=== PATIENT | female | born 1985 | race Caucasian/White ===

== ENCOUNTER 2017-08-14 01:11 | Inpatient (IN) | payer OTHER ==
[2017-08-14] VITALS (30 sets, daily range): BP systolic 95–135; BP diastolic 50–84
[~2017-08-14] VITALS: Ht 172.7 cm; Wt 85.2 kg
[2017-08-14] MEDS ORDERED: LR 1,000 ML IV SCH (02:39)
[2017-08-14] MEDS ORDERED: LACTATED RINGER'S 1000 ML IV ONE (02:45)
[2017-08-14 03:12] LABS: MEAN CORPUSCULAR HEMOGLOBIN 27.6 pg (27.0-33.0); MEAN CORPUSCULAR HGB CONC 33.6 g/dl (32.0-36.5); MEAN CORPUSCULAR VOLUME 82.2 fl (80.0-96.0); PLATELET COUNT, AUTOMATED 241 10^3/uL (150-450); RED CELL DISTRIBUTION WIDTH 13.2 % (11.5-14.5); WHITE BLOOD COUNT 13.3 10^3/uL (4.0-10.0)
[2017-08-14] MEDS ORDERED: FENTANYL 2MCG/ML ROPIVACAINE 0.2% IN 0.9% NACL 200ML IVBAG As Ordered ONE (03:41)
[2017-08-14] MEDS ORDERED: LACTATED RINGER'S 1000 ML IV PRN (04:15)
[2017-08-14] MEDS ORDERED: ONDANSETRON 4MG/2ML VIAL (J2405) IV PRN (04:15)
[2017-08-14] MEDS ORDERED: REFRIGERATOR IV KEYS XX PRN (04:15)
[2017-08-14] MEDS ORDERED: EPIDURAL/PCA KEYS XX PRN (04:15)
[2017-08-14] MEDS ORDERED: FENTANYL/ROPIVACAINE/NACL BAG 200 ML EPIDURAL SCH (04:15)
[2017-08-14] MEDS ORDERED: ePHEDrine SULFATE 25 MG/5 ML(5MG/ML) SYRINGE IV PRN (04:15)
[2017-08-14] MEDS ORDERED: diphenhydrAMINE INJ 50MG/ML VIAL (J1200) IV PRN (04:15)
[2017-08-14] MEDS ORDERED: EPIDURAL COMMENT XX SCH (04:15)
[2017-08-14] MEDS ORDERED: NALOXONE INJ 0.4 MG/1 ML VIAL (J2310) IV PRN (04:15)
[2017-08-14] MEDS ORDERED: OXYTOCIN 30 UNITS IN 0.9% NaCl 500ML IV BAG (J2590) As Ordered ONE (06:47)
--- NOTE | 2017-08-14 10:14 | HPE ---
DATE OF ADMISSION: 08/14/2017 32-year-old, 3, para 2, last menstrual period (LMP) of 11/11/2016, estimated date of confinement (EDC) 08/18/2017, at 39 and 3 weeks of gestation with a history of query spontaneous rupture of membranes. PAST HISTORY: 2011, at 39 weeks, spontaneous vaginal delivery, 7 pound 4 ounce male. 2014, at 39 weeks, spontaneous vaginal delivery, 7 pound 3 ounce female. Labs show A+, HIV negative, hepatitis negative, RPR negative, rubella immune. Varicella immune. Urine negative. Gonorrhea and chlamydia negative. 1-hour glucose 139. Her 3-hour GTT fasting 86, 1 hour 134, 2 hour 94 and 3hour was 78. GBS status is negative. On examination, appears distressed. Sterile speculum examination: Nitrazine was negative, ferning was negative, bulging membranes and patient was 7 cm dilated. Hemoglobin 11.3, hematocrit 33.6, platelets 241. Blood pressure 135/83, respirations 20, pulse 68, temperature 98.4. Urine 1.010, pH f5, trace of blood. On digital examination, she is 7 cm, bulging membranes, 80% effaced, -3 station. Our plan of management is do epidural and artifical rupture of membranes (AROM) at the appropriate interval. The rest the examination unremarkable. Category 1 strip. She is normocephalic, atraumatic. Neck full range of motion. Pupils equal and reactive to light. Distal pulses symmetric. No evidence of deep venous thrombosis (DVT), pulmonary embolism (PE) or superficial phlebitis. Chest is clear bilaterally to bases. No wheezes or rhonchi. No costovertebral angle (CVA) tenderness. Four quadrant bowel sounds are noted. Uterus is nontender in between contractions. No rashes, lesions or pruritus. No arthralgia or myalgia. No complaints of cough, wheezes, shortness of breath or dyspnea on exertion. No palpitations or chest pain. Not bleeding. Neuro complete. No incontinency, urgency or frequency. No nausea, vomiting, diarrhea or constipation. No diabetic issues. No LIBRARY DIRECTOR issues. Past surgical, medical and family history noncontributory. She does not smoke, drink, abuse drugs. She is . There is no domestic violence. In summary, we have a term gestation with bulging membranes, 7 cm, in active labor.
[2017-08-14] MEDS ORDERED: BICITRA 30ML SOLN UDC PO ONE (10:15)
[2017-08-14] MEDS ORDERED: OXYTOCIN DRIP 30 UNITS in APPROPRIATE DILUENT 1 EA IV SCH (11:02)
[2017-08-14 11:13] LABS: CORD GAS ABE V -2.2; CORD GAS O2 SAT V 35.6 %; CORD GAS PCO2 V 65.3 mmHg; CORD GAS PH V 7.235 UNITS; CORD GAS PO2 V 18.6 mmHg
[2017-08-14 11:15] LABS: CORD GAS O2 SAT A 49.9 %; CORD GAS PCO2 A 34.5 mmHg; CORD GAS PH A 7.195 UNITS; CORD GAS PO2 A 26.1 mmHg; CORD GAS SBC A 13.1 MEQ/L; CORD GAS TCO2 A 14.1 MEQ/L
[2017-08-14] MEDS ORDERED: DOCUSATE SODIUM 100 MG CAP PO PRN (11:15)
[2017-08-14] MEDS ORDERED: MEASLES,MUMPS,RUBELLA VACCINE INJ (MMR-II) (90707) SC SCH (11:15)
[2017-08-14] MEDS ORDERED: ANUSOL HC CREAM 30GM TOP PRN (11:15)
[2017-08-14] MEDS ORDERED: DIBUCAINE 1% OINTMENT 30GM TOP PRN (11:15)
[2017-08-14] MEDS ORDERED: OXYTOCIN INJ 10 UNITS/ML VIAL (J2590) IV ONE (11:15)
[2017-08-14] MEDS ORDERED: ACETAMINOPHEN 500 MG TAB PO PRN (11:15)
[2017-08-14] MEDS ORDERED: METHYLERGONOVINE MALEATE 0.2 MG TAB PO PRN (11:15)
[2017-08-14] MEDS ORDERED: MOM 30ML SUSPENSION UDC PO PRN (11:15)
[2017-08-14] MEDS ORDERED: RHOGAM 300 MCG (1500 IU) INJ (J2790) IM SCH (11:15)
[2017-08-14] MEDS ORDERED: IBUPROFEN 800 MG TAB PO PRN (11:15)
[2017-08-14] MEDS ORDERED: OXYTOCIN INJ 10 UNITS/ML VIAL (J2590) As Ordered ONE (12:34)
--- NOTE | 2017-08-14 18:37 | DN ---
DATE: 08/14/2017 DELIVERY NOTE: I was called to the delivery room when the patient already had delivered the baby spontaneously and sitting on the mother's chest. Live female weighing 8 pounds 5 ounces, 3760 grams, scores of 8 and 9 at 1 and 5 minutes, respectively. Placenta delivered spontaneously thereafter. Three-vessel cord, membranes and tissues intact. Arterial and venous pH performed. Uterus contracted well down on Pitocin. She had a first-degree tear repaired with a J339 2-0 Vicryl and the patient and baby tolerating procedure well.
[2017-08-15 06:00] VITALS: BP 117/57
[2017-08-15 07:12] LABS: MEAN CORPUSCULAR HEMOGLOBIN 27.9 pg (27.0-33.0); MEAN CORPUSCULAR VOLUME 84.5 fl (80.0-96.0); PLATELET COUNT, AUTOMATED 219 10^3/uL (150-450); RED CELL DISTRIBUTION WIDTH 13.2 % (11.5-14.5); WHITE BLOOD COUNT 14.7 10^3/uL (4.0-10.0)
--- NOTE | 2017-08-15 08:45 | DSES ---
DATE OF ADMISSION: 08/14/2017 DATE OF DISCHARGE: This lady is a 32-year-old, 3, now para 3, admitted in spontaneous labor with spontaneous vaginal delivery of a live female with epidural, 8 pounds 5 ounces, 3760 grams, Apgars of 8 and 9 at one and five minutes respectively. The arterial pH is 7.19, base excess -14, venous pH 7.23, base excess -2.2. Admitting hemoglobin 11.3, hematocrit 33.6 and platelets were 241. Discharge hemoglobin 9.9, hematocrit 30.0 abd platelets are 219. Her vital signs on discharge were blood pressure 117/57, respirations 18, pulse 61 and temperature is 98.1. We discussed phlebitis, cystitis, mastitis, endometritis and cellulitis; diet, exercise and pain management; perineal, breast and wound care. She was discharged with medications and requesting an intrauterine contraceptive device (IUCD) at her 6-week checkup. In summary, term gestation, delivered a live female infant, discharged improved.
[2017-08-15] MEDS ORDERED: PRENATAL VITAMINS CHEWABLE TABLET PO SCH (09:00)
[2017-08-15] MEDS ORDERED: COLA100C5 PO (09:40)
[2017-08-15] MEDS ORDERED: DIBU1OIN TOP (09:41)
[2017-08-15] MEDS ORDERED: ANUS2.5C2 TOP (09:41)
[2017-08-15] MEDS ORDERED: ACET50TA PO (09:41)
[2017-08-15] MEDS ORDERED: MOM30SS PO (09:41)
[2017-08-15] MEDS ORDERED: IBUP-1114 PO (09:41)
== END 2017-08-15 12:10 | disposition home or self-care (01) | DRG 775 ==
LOC: M LDO 01:11 → M LDI 02:38 → M OBS 12:34
PROVIDERS: ADMIT Obstetrics & Gynecology; ATTEND Obstetrics & Gynecology
PROC: 10E0XZZ Delivery of Products of Conception, External Approach (ICD-10-PCS; principal; 2017-08-14)
PROC: 0HQ9XZZ Repair Perineum Skin, External Approach (ICD-10-PCS; 2017-08-14)
DX: O70.0 First degree perineal laceration during delivery (principal); Z37.0 Single live birth; Z3A.39 39 weeks gestation of pregnancy

== ENCOUNTER → 2017-10-25 | Outpatient (REF) | payer OTHER ==
[2017-10-25 18:50] LABS: APPEARANCE, URINE CLEAR (CLEAR); BACTERIA, URINE AUTO NEGATIVE (NEGATIVE); BILIRUBIN, URINE AUTO NEGATIVE (NEGATIVE); BLOOD, URINE BLOOD 1+ (NEGATIVE); COLOR, URINE YELLOW (YELLOW); GLUCOSE, URINE (UA) AUTO NEGATIVE (NEGATIVE); KETONE, URINE AUTO NEGATIVE (NEGATIVE); LEUKOCYTE ESTERASE, URINE AUTO TRACE (NEGATIVE); MUCUS, URINE SMALL (NEGATIVE); NITRITE, URINE AUTO NEGATIVE (NEGATIVE); PROTEIN, URINE AUTO NEGATIVE (NEGATIVE); RBC, URINE AUTO 3 /HPF (0-3); SPECIFIC GRAVITY URINE AUTO 1.017 (1.002-1.035); SQUAMOUS EPITHELIAL CELL UR AU 6 /HPF (0-6); UROBILINOGEN, URINE AUTO 0.2 mg/dL (0.0-2.0); WBC, URINE AUTO 4 /HPF (0-3)
== END ==
LOC: M SMT 17:15
DX: N20.0 Calculus of kidney (principal)

== ENCOUNTER → 2017-11-07 | Outpatient (CLI) | payer OTHER | LOC: M RAD 10:07 | DX: N85.8 Other specified noninflammatory disorders of uterus (principal); K44.9 Diaphragmatic hernia without obstruction or gangrene; R10.9 Unspecified abdominal pain | CPT/HCPCS: 74176 ==

== ENCOUNTER 2018-08-18 03:14 | Emergency (ER) | payer OTHER ==
[2018-08-18] MEDS: GI COCKTAIL 50ML BTL(HYOSCYAMINE/MAALOX/LIDOCAINE VISCOUS)(1:3:1) PO (04:15)
[2018-08-18 04:58] LABS: BASO % 0.1 % (0.0-1.0); EOS # 0.1 10^3/uL (0.0-0.50); EOS % 0.8 % (0.0-3.0); HEMATOCRIT 39.6 % (36.0-47.0); HEMOGLOBIN 13.1 g/dl (12.0-15.5); IMMATURE GRANULOCYTE % 0.2 % (0-3.0); LYMPH # 3.7 10^3/uL (1.5-4.5); LYMPH % 42.5 % (24.0-44.0); MEAN CORPUSCULAR HEMOGLOBIN 28.9 pg (27.0-33.0); MEAN CORPUSCULAR HGB CONC 33.1 g/dl (32.0-36.5); MEAN CORPUSCULAR VOLUME 87.2 fl (80.0-96.0); MONO # 0.5 10^3/uL (0.0-0.8); MONO % 5.4 % (0.0-5.0); NEUTROPHILS # 4.4 10^3/uL (1.8-7.7); PLATELET COUNT, AUTOMATED 313 10^3/uL (150-450); RED BLOOD COUNT 4.54 10^6/uL (4.00-5.40); RED CELL DISTRIBUTION WIDTH 12.2 % (11.5-14.5); WHITE BLOOD COUNT 8.7 10^3/uL (4.0-10.0)
[2018-08-18 05:12] LABS: ALBUMIN 3.7 GM/DL (3.2-5.2); ALBUMIN/GLOBULIN RATIO 1.12 (1.00-1.93); ALKALINE PHOSPHATASE 77 U/L (45-117); ALT/SGPT 18 U/L (12-78); ANION GAP 7 MEQ/L (8-16); AST/SGOT 16 U/L (7-37); BILIRUBIN,DIRECT 0.1 MG/DL (0.0-0.2); BILIRUBIN,TOTAL 0.4 MG/DL (0.2-1.0); BLOOD UREA NITROGEN 18 MG/DL (7-18); CALCIUM LEVEL 8.6 MG/DL (8.5-10.1); CARBON DIOXIDE LEVEL 26 MEQ/L (21-32); CHLORIDE LEVEL 107 MEQ/L (98-107); CREATININE FOR GFR 0.79 MG/DL (0.55-1.30); GLOMERULAR FILTRATION RATE > 60.0 (>60); GLUCOSE, FASTING 97 MG/DL (70-100); LIPASE 74 U/L (73-393); POTASSIUM SERUM 3.7 MEQ/L (3.5-5.1); SODIUM LEVEL 140 MEQ/L (136-145)
[2018-08-18 05:14] LABS: AMORPHOUS SEDIMENT SMALL (NEGATIVE); APPEARANCE, URINE TURBID (CLEAR); BACTERIA, URINE AUTO NEGATIVE (NEGATIVE); BILIRUBIN, URINE AUTO NEGATIVE (NEGATIVE); BLOOD, URINE BLOOD 1+ (NEGATIVE); COLOR, URINE AMBER (YELLOW); GLUCOSE, URINE (UA) AUTO NEGATIVE (NEGATIVE); KETONE, URINE AUTO TRACE mg/dL (NEGATIVE); LEUKOCYTE ESTERASE, URINE AUTO 1+ (NEGATIVE); MUCUS, URINE LARGE (NEGATIVE); NITRITE, URINE AUTO NEGATIVE (NEGATIVE); PROTEIN, URINE AUTO 2+ mg/dL (NEGATIVE); RBC, URINE AUTO 19 /HPF (0-3); SQUAMOUS EPITHELIAL CELL UR AU 6 /HPF (0-6); WBC, URINE AUTO 4 /HPF (0-3)
[2018-08-18 05:20] LABS: CONTROL LINE HCG INT CTR LINE PRESENT; HCG, SERUM QUALITATIVE NEGATIVE (NEGATIVE)
== END 2018-08-18 06:06 | disposition home or self-care (01) ==
LOC: M ED 03:14
DX: K29.70 Gastritis, unspecified, without bleeding (principal)
CPT/HCPCS: 76705

== ENCOUNTER 2018-08-19 09:02 | Emergency (ER) | payer OTHER ==
[2018-08-19] MEDS ORDERED: FAMOTIDINE 20 MG TAB PO (09:30)
[2018-08-19 09:56] LABS: BASO % 0.3 % (0.0-1.0); EOS % 0.4 % (0.0-3.0); HEMATOCRIT 41.2 % (36.0-47.0); HEMOGLOBIN 13.7 g/dl (12.0-15.5); IMMATURE GRANULOCYTE % 0.1 % (0-3.0); LYMPH # 3.1 10^3/uL (1.5-4.5); LYMPH % 40.4 % (24.0-44.0); MEAN CORPUSCULAR HEMOGLOBIN 29.1 pg (27.0-33.0); MEAN CORPUSCULAR HGB CONC 33.3 g/dl (32.0-36.5); MEAN CORPUSCULAR VOLUME 87.7 fl (80.0-96.0); MONO # 0.4 10^3/uL (0.0-0.8); MONO % 4.7 % (0.0-5.0); NEUTROPHILS # 4.1 10^3/uL (1.8-7.7); NEUTROPHILS % 54.1 % (36.0-66.0); PLATELET COUNT, AUTOMATED 309 10^3/uL (150-450); RED CELL DISTRIBUTION WIDTH 12.2 % (11.5-14.5); WHITE BLOOD COUNT 7.6 10^3/uL (4.0-10.0)
[2018-08-19] MEDS: SUCRALFATE 1 GM TAB PO (10:08)
[2018-08-19] MEDS: FAMOTIDINE IV BAG 20 MG in APPROPRIATE DILUENT 1 EA IV (10:08)
[2018-08-19 10:17] LABS: CONTROL LINE HCG INT CTR LINE PRESENT; HCG, SERUM QUALITATIVE NEGATIVE (NEGATIVE)
[2018-08-19 10:48] LABS: ALBUMIN 4.3 GM/DL (3.2-5.2); ALBUMIN/GLOBULIN RATIO 1.48 (1.00-1.93); ALKALINE PHOSPHATASE 81 U/L (45-117); ALT/SGPT 17 U/L (12-78); AMYLASE 52 U/L (25-115); ANION GAP 6 MEQ/L (8-16); AST/SGOT 10 U/L (7-37); BILIRUBIN,DIRECT 0.2 MG/DL (0.0-0.2); BILIRUBIN,TOTAL 0.7 MG/DL (0.2-1.0); BLOOD UREA NITROGEN 10 MG/DL (7-18); CALCIUM LEVEL 9.1 MG/DL (8.5-10.1); CARBON DIOXIDE LEVEL 29 MEQ/L (21-32); CHLORIDE LEVEL 106 MEQ/L (98-107); CK-MB VALUE MASS < 1.0 NG/ML (<3.6); CPK CREATINE PHOSPHOKINASE 78 U/L (26-192); CREATININE FOR GFR 0.83 MG/DL (0.55-1.30); GLOMERULAR FILTRATION RATE > 60.0 (>60); GLUCOSE, FASTING 88 MG/DL (70-100); LIPASE 64 U/L (73-393); MB/CK RELATIVE INDEX 1.28 (< OR =4); POTASSIUM SERUM 4.2 MEQ/L (3.5-5.1); SODIUM LEVEL 141 MEQ/L (136-145); TOTAL PROTEIN 7.2 GM/DL (6.4-8.2); TROPONIN I < 0.02 NG/ML (< 0.10)
== END 2018-08-19 11:10 | disposition home or self-care (01) ==
LOC: M ED 09:02
DX: K29.00 Acute gastritis without bleeding (principal); K21.9 Gastro-esophageal reflux disease without esophagitis; Z79.899 Other long term (current) drug therapy; Z87.442 Personal history of urinary calculi
CPT/HCPCS: 93005

== ENCOUNTER → 2019-02-21 | Outpatient (CLI) | payer OTHER ==
[~2019-02-21] MED LIST: ACET650T3 PO; ANUS2.5C2 TOP; COLA100C5 PO; DIBU1OIN TOP; IBUP-1022 PO; IBUP-1114 PO; MAPA500T2 PO; MOM30SS PO; PROT1TAB2 PO; SUCR1SS PO; ZOFR4TAB14 PO
--- NOTE | 2019-02-21 12:42 | REP ---
Left ankle four views History: Pain There is no acute fracture or dislocation. The joint space is normal in appearance. Impression there is no acute fracture or dislocation. Electronically Signed by Rudy Hand MD 02/21/2019 12:33 P
== END ==
LOC: M WUC 11:22
PROVIDERS: ATTEND Physician Assistant
DX: M25.572 Pain in left ankle and joints of left foot (principal)